=== PATIENT | female | born 1960 | race Caucasian/White ===

== ENCOUNTER 2017-04-10 23:24 | Observation (INO) ==
[2017-04-10] MEDS ORDERED: Aspirin 325 MG TABLET PO ONE (23:46)
--- NOTE | 2017-04-10 23:50 | Emergency Department Note ---
Disposition Clinical Impression: Unstable angina Chest pain Qualifiers: Chest pain type: other chest pain Qualified Code(s): R07.89 - Other chest pain ; R07.8 - Other chest pain N&V (nausea and vomiting) Qualifiers: Vomiting type: unspecified Vomiting Intractability: non-intractable Qualified Code(s): R11.2 - Nausea with vomiting, unspecified Disposition: Admitted As Inpatient Condition: Fair Time of Disposition: 04:57 Chest Pain HPI - General Chief Complaint: ED Chest Pain Stated Complaint: chest pains Time Seen by Provider: 04/10/17 23:47 Source: patient Limitations: no limitations Vital Signs Reviewed: Yes Nursing Notes Reviewed: Yes - History of Present Illness HPI Narrative: 57-year-old female complains of sudden onset of severe chest pain 8/10 intensity sternal with radiation to her back that started 45 minutes ago and states it feels like her ribs being pulled apart. Patient took 4 baby aspirin at the onset of pain. Patient states she has had pain like this before in the past but did not come to the ED. Patient states she has been worked up with a stress test greater than 25 years ago that was negative. Patient states she had radiation pain to her right arm, diaphoresis, and nausea and vomiting times one time. No hematemesis. Patient has history of high blood pressure, diabetes, hypercholesterolemia. Patient states father had heart disease but at age of 51 secondary to cancer. Severity scale (1-10): 5 - Related Data Home Medications Medication Instructions Recorded Confirmed Methimazole [Tapazole] 10 mg PO BID 04/11/17 04/11/17 Propranolol [Inderal] 10 mg PO TID 04/11/17 04/11/17 Allergies Allergy/AdvReac Type Severity Reaction Status Date / Time No Known Allergies Allergy Verified 04/10/17 23:25 All systems ED: reviewed and negative except as stated. Review of Systems: As Per HPI Constitutional: Reports: fever, chills. Denies: weakness Eyes: Denies: vision change ENT ED: Denies: congestion Cardiovascular: Reports: chest pain. Denies: palpitations Gastrointestinal: Reports: nausea, vomiting Chest Pain PMH - Past Medical History Medical history: Reports: other Psychiatric history: Reports: no psych history - Social History Smoking Status: Never smoker Alcohol use: Reports: none Drug use: Reports: none Physical Exam Vital Signs Temperature 98.2 F 04/10/17 23:25 Pulse Rate 86 04/10/17 23:25 Respiratory Rate 20 04/10/17 23:25 Blood Pressure 158/98 04/10/17 23:25 O2 Sat by Pulse Oximetry 100 04/10/17 23:25 Temperature 98.2 F 04/10/17 23:25 Pulse Rate 86 04/10/17 23:25 Respiratory Rate 20 04/10/17 23:25 Blood Pressure 158/98 04/10/17 23:25 O2 Sat by Pulse Oximetry 100 04/10/17 23:25 Oxygen Delivery Oxygen Delivery Room Air CONSTITUTIONAL: Well-appearing; well-nourished; A&O X 3, in no apparent distress HEAD: Normocephalic; atraumatic EYES: PERRL, no scleral icterus NOSE: The nose is normal in appearance without rhinorrhea NECK: No JVD or distended neck veins RESP: Normal chest excursion with respiration; breath sounds clear and equal bilaterally; no wheezes, rhonchi, or rales CARD: Regular rhythm, without murmurs, rub or gallop ABD: Non-distended; non-tender, soft, without rigidity, rebound or guarding,no pulsatile mass CHEST: No pain with palpation SKIN: Normal for age and race; warm and dry without diaphoresis ; no apparent lesions EXTREMITIES: Pulses are 2 plus and equal times 4 extremities, no peripheral edema or calf muscle pain, skin warm and clammy - General Limitations: no limitations General appearance: alert Course - Reevaluation(s) Reevaluation #1: Patient's pain was at 2/10 after 2 nitros. Patient states her pain is now going back up and currently 4/10 Time: 00:37 Reevaluation #2: Order CTA chest, 50 g fentanyl, and 4 mg Zofran. Time: 00:42 Vital Signs Temperature 98.2 F 04/10/17 23:25 Pulse Rate 86 04/10/17 23:25 Respiratory Rate 20 04/10/17 23:25 Blood Pressure 158/98 04/10/17 23:25 O2 Sat by Pulse Oximetry 100 04/10/17 23:25 Temperature 97.9 F 04/11/17 02:38 Pulse Rate 85 04/11/17 02:38 Respiratory Rate 14 04/11/17 02:38 Blood Pressure 118/66 04/11/17 02:38 O2 Sat by Pulse Oximetry 96 04/11/17 02:38 Oxygen Delivery Oxygen Delivery Room Air Chest Pain - MDM Narrative Medical decision making narrative: 57-year-old female who is very concerning for possible ACS/NE with recent history of acute onset of chest pain radiation to her back and to her right arm with associated diaphoresis, and nausea vomiting. Given patient's report I am also concern for aortic dissection. During patient's evaluation and nitroglycerin trial she started to have worsening pain which she states was moving lower. Patient was sent for CTA chest and CTA abdomen and pelvis. Heart score 4 Patient is taking down to CT before she can get the fentanyl. Once patient return her pain was 1/10 that "he went to 0/10 after few minutes. Patient states she was comfortable and did not need to fentanyl. CTA chest and abdomen and pelvis negative for dissection or other abnormalities. Patient's labs were negative with the exception of her LFTs which are elevated. AST 169, ALT 93. Patient will require further investigation for elevated liver enzymes. Patient will be admitted for ACS or concerns to have her troponins trended overnight. The patient understands and agrees to treatment plan. Patient is accepted for admission by Dr. Banda the hospitalist in stable condition. Patient pain currently 0/10 - Lab Data Lab results reviewed: Yes I reviewed the patient's lab results. Lab results narrative: Short CBC 04/10/17 Range/Units 23:45 WBC 9.1 (4.3-11.1) K/mcL Hgb 15.5 H (11.5-15.4) g/dL Hct 47.9 H (35.3-44.9) % Plt Count 353 (140-400) K/mcL Neutrophils # 6.9 (1.6-8.9) K/mcL BMP 04/10/17 Range/Units 23:45 Sodium 135 L (136-145) mEq/L Potassium 3.9 (3.5-5.1) mEq/L Chloride 103 (98-107) mEq/L Carbon Dioxide 24 (23-29) mEq/L BUN 22 H (6-20) mg/dL Creatinine 0.96 (0.60-1.20) mg/dL Glucose 115 H (70-105) mg/dL Calcium 8.9 (8.6-10.3) mg/dL Cardiac Enzymes 04/11/17 04/10/17 Range/Units 03:10 23:45 Troponin I < 0.03 < 0.03 (< 0.04) ng/mL Liver Function 04/10/17 Range/Units 23:45 Total Bilirubin 1.1 H (0.3-1.0) mg/dL Direct Bilirubin 0.3 H (0.0-0.2) mg/dL AST 169 H (13-39) Units/L ALT 93 H (7-52) Units/L Alkaline Phosphatase 103 (34-104) Units/L Albumin 3.7 (3.5-5.7) g/dL Result diagrams: 04/10/17 23:45 04/10/17 23:45 Lab Results 04/10/17 04/10/17 04/10/17 Range/Units 23:45 23:45 23:45 WBC 9.1 (4.3-11.1) K/mcL RBC 5.11 H (3.82-4.97) M/mcL Hgb 15.5 H (11.5-15.4) g/dL Hct 47.9 H (35.3-44.9) % MCV 93.7 (83.0-100.0) fL MCH 30.3 (28.0-33.3) pg MCHC 32.4 (31.6-35.5) g/dL RDW 13.4 (11.5-14.5) % Plt Count 353 (140-400) K/mcL MPV 10.8 (9.4-12.4) fL Immature Gran % 0.4 (0-4) % Seg Neutrophils % 76.1 % Lymphocytes % 14.4 % Monocytes % 8.0 % Eosinophils % 0.9 % Basophils % 0.2 % Neutrophils # 6.9 (1.6-8.9) K/mcL Lymphocytes # 1.3 (0.6-4.6) K/mcL Monocytes # 0.7 (0.0-1.3) K/mcL Eosinophils # 0.1 (0.0-0.6) K/mcL Basophils # 0.0 (0.0-0.2) K/mcL Sodium 135 L (136-145) mEq/L Potassium 3.9 (3.5-5.1) mEq/L Chloride 103 (98-107) mEq/L Carbon Dioxide 24 (23-29) mEq/L BUN 22 H (6-20) mg/dL Creatinine 0.96 (0.60-1.20) mg/dL Est GFR ( Amer) > 60 (> 60) Est GFR (Non-Af Amer) 60 (> 60) BUN/Creatinine Ratio 23 (6-26) Glucose 115 H (70-105) mg/dL POC Glucose (58-89) Calculated Osmolality 284 (280-300) Calcium 8.9 (8.6-10.3) mg/dL Total Bilirubin 1.1 H (0.3-1.0) mg/dL Direct Bilirubin 0.3 H (0.0-0.2) mg/dL Indirect Bilirubin 0.8 (0.0-1.2) mg/dL AST 169 H (13-39) Units/L ALT 93 H (7-52) Units/L Alkaline Phosphatase 103 (34-104) Units/L Troponin I < 0.03 (< 0.04) ng/mL Serum Total Protein 6.5 (6.4-8.9) g/dL Albumin 3.7 (3.5-5.7) g/dL Globulin 2.8 (2.4-3.5) g/dL Albumin/Globulin Ratio 1.3 (1.1-2.2) Lipase 24 (11-82) Units/L TSH 0.949 (0.340-5.600) mcIU/mL 04/10/17 Range/Units 23:56 WBC (4.3-11.1) K/mcL RBC (3.82-4.97) M/mcL Hgb (11.5-15.4) g/dL Hct (35.3-44.9) % MCV (83.0-100.0) fL MCH (28.0-33.3) pg MCHC (31.6-35.5) g/dL RDW (11.5-14.5) % Plt Count (140-400) K/mcL MPV (9.4-12.4) fL Immature Gran % (0-4) % Seg Neutrophils % % Lymphocytes % % Monocytes % % Eosinophils % % Basophils % % Neutrophils # (1.6-8.9) K/mcL Lymphocytes # (0.6-4.6) K/mcL Monocytes # (0.0-1.3) K/mcL Eosinophils # (0.0-0.6) K/mcL Basophils # (0.0-0.2) K/mcL Sodium (136-145) mEq/L Potassium (3.5-5.1) mEq/L Chloride (98-107) mEq/L Carbon Dioxide (23-29) mEq/L BUN (6-20) mg/dL Creatinine (0.60-1.20) mg/dL Est GFR ( Amer) (> 60) Est GFR (Non-Af Amer) (> 60) BUN/Creatinine Ratio (6-26) Glucose (70-105) mg/dL POC Glucose 118 H (58-89) Calculated Osmolality (280-300) Calcium (8.6-10.3) mg/dL Total Bilirubin (0.3-1.0) mg/dL Direct Bilirubin (0.0-0.2) mg/dL Indirect Bilirubin (0.0-1.2) mg/dL AST (13-39) Units/L ALT (7-52) Units/L Alkaline Phosphatase (34-104) Units/L Troponin I (< 0.04) ng/mL Serum Total Protein (6.4-8.9) g/dL Albumin (3.5-5.7) g/dL Globulin (2.4-3.5) g/dL Albumin/Globulin Ratio (1.1-2.2) Lipase (11-82) Units/L TSH (0.340-5.600) mcIU/mL - Radiology Data Radiology results reviewed: Yes I reviewed the patient's radiology results. Chest X-Ray 04/10/17 23:30 IMPRESSION: No acute process. D/ / Bhupendra Ortiz MD / Bhupendra Ortiz MD Interpreting Provider: Bhupendra Ortiz MD Chest CTA 04/11/17 00:40 IMPRESSION: 1. No acute abnormality of the chest, abdomen pelvis. 2. No acute abnormality of the thoracic or abdominal aorta. No evidence of aneurysm or dissection. 3. Status post cholecystectomy. 4. Normal appendix. 5. Colonic diverticulosis, most in the sigmoid colon, without evidence of diverticulitis. D/ / Bhupendra Ortiz MD / Bhupendra Ortiz MD Interpreting Provider: Bhupendra Ortiz MD Abdomen/Pelvis CTA 04/11/17 00:43 IMPRESSION: 1. No acute abnormality of the chest, abdomen pelvis. 2. No acute abnormality of the thoracic or abdominal aorta. No evidence of aneurysm or dissection. 3. Status post cholecystectomy. 4. Normal appendix. 5. Colonic diverticulosis, most in the sigmoid colon, without evidence of diverticulitis. D/ / Bhupendra Ortiz MD / Bhupendra Ortiz MD Interpreting Provider: Bhupendra Ortiz MD - EKG Data EKG attestation: Yes I reviewed and interpreted this EKG. EKG results narrative: EKG taken 04/10/2017 at 2332 hrs. shows sinus rhythm at a rate of [address] elevations or depressions any leads, no QRS widening or QT prolongation. Previous Ekin T for comparison also shows sinus rhythm at a rate of 88 bpm no signs of ischemia. Repeat EKG taken at 00 42 hours shows sinus rhythm but has some slight depression in lateral leads of V4 5 and 6 less than 1 box, and some flattening of the isoelectric line in aVL. Heart Score - Score History: Highly Suspicious EKG: Non Specific repolarisation Disturbance Age: 45-65 Risk Factors: No risk factors known Troponin: Less than normal limit HEART Score Total: 4
[2017-04-10 23:53] LABS: Basophils % 0.2 %; Eosinophils # 0.1 K/mcL (0.0-0.6); Eosinophils % 0.9 %; Hematocrit 47.9 % (35.3-44.9); Hemoglobin 15.5 g/dL (11.5-15.4); Immature Granulocytes % 0.4 % (0-4); Lymphocytes # 1.3 K/mcL (0.6-4.6); Lymphocytes % 14.4 %; Mean Corpuscular HGB Conc 32.4 g/dL (31.6-35.5); Mean Corpuscular Hemoglobin 30.3 pg (28.0-33.3); Mean Corpuscular Volume 93.7 fL (83.0-100.0); Mean Platelet Volume 10.8 fL (9.4-12.4); Monocytes # 0.7 K/mcL (0.0-1.3); Neutrophils # 6.9 K/mcL (1.6-8.9); Platelet Count 353 K/mcL (140-400); Red Blood Count 5.11 M/mcL (3.82-4.97); Red Cell Distribution Width 13.4 % (11.5-14.5); Segmented Neutrophils % 76.1 %
[2017-04-11 00:09] LABS: BUN/Creatinine Ratio 23 (6-26); Blood Urea Nitrogen 22 mg/dL (6-20); Calcium 8.9 mg/dL (8.6-10.3); Carbon Dioxide 24 mEq/L (23-29); Chloride 103 mEq/L (98-107); Glucose 115 mg/dL (70-105); Osmolality,Calculated 284 (280-300); Potassium 3.9 mEq/L (3.5-5.1); Sodium 135 mEq/L (136-145); eGFR For African Americans > 60 (> 60); eGFR For Non-African Americans 60 (> 60)
[2017-04-11] MEDS: Nitroglycerin 0.4 MG TAB.SUBL SL PRN ×3 (00:14→00:36)
[2017-04-11] MEDS ORDERED: 0.9 % Sodium Chloride 1,000 ML IVC ONE ×2 (00:32)
[2017-04-11] MEDS ORDERED: Ondansetron 4 MG/2 ML VIAL IVP PRN ×2 (00:40→02:09)
[2017-04-11] MEDS ORDERED: *HR* FentaNYL (PF) 100 MCG/2 ML VIAL IVP ONE (00:40)
--- NOTE | 2017-04-11 00:48 | Emergency Department Note ---
Disposition Clinical Impression: Unstable angina Chest pain Qualifiers: Chest pain type: other chest pain Qualified Code(s): R07.89 - Other chest pain N&V (nausea and vomiting) Qualifiers: Vomiting type: unspecified Vomiting Intractability: non-intractable Qualified Code(s): R11.2 - Nausea with vomiting, unspecified Disposition: Admitted As Inpatient Condition: Fair General Adult HPI - General Chief complaint: ED Chest Pain Stated complaint: chest pains Time Seen by Provider: 04/10/17 23:47 Source: patient Limitations: no limitations - History of Present Illness Pain Scale: 5 - Related Data Home Medications Medication Instructions Recorded Confirmed Methimazole [Tapazole] 10 mg PO BID 04/11/17 04/11/17 Propranolol [Inderal] 10 mg PO TID 04/11/17 04/11/17 Allergies Allergy/AdvReac Type Severity Reaction Status Date / Time No Known Allergies Allergy Verified 04/10/17 23:25 Constitutional: Reports: fever, chills. Denies: weakness Eyes: Denies: vision change ENT ED: Denies: congestion Cardiovascular: Reports: chest pain. Denies: palpitations Gastrointestinal: Reports: nausea, vomiting Past Medical History - Past Medical History Medical history: Reports: other Psychiatric history: Reports: no psych history - Social History Smoking Status: Never smoker Smokeless Tobacco Status: No Alcohol use: Reports: none Drug use: Reports: none Physical Exam - General Limitations: no limitations General appearance: alert Course - Reevaluation(s) Time: 00:45 Vital Signs Temperature 98.2 F 04/10/17 23:25 Pulse Rate 86 04/10/17 23:25 Respiratory Rate 20 04/10/17 23:25 Blood Pressure 158/98 04/10/17 23:25 O2 Sat by Pulse Oximetry 100 04/10/17 23:25 Temperature 97.9 F 04/11/17 02:38 Pulse Rate 85 04/11/17 02:38 Respiratory Rate 14 04/11/17 02:38 Blood Pressure 118/66 04/11/17 02:38 O2 Sat by Pulse Oximetry 96 04/11/17 02:38 Oxygen Delivery Oxygen Delivery Room Air Medical Decision Making - Lab Data Result diagrams: 04/10/17 23:45 04/10/17 23:45 Lab Results 02/10/18 02/10/18 02/10/18 Range/Units 23:45 23:45 23:45 WBC 9.1 (4.3-11.1) K/mcL RBC 5.11 H (3.82-4.97) M/mcL Hgb 15.5 H (11.5-15.4) g/dL Hct 47.9 H (35.3-44.9) % MCV 93.7 (83.0-100.0) fL MCH 30.3 (28.0-33.3) pg MCHC 32.4 (31.6-35.5) g/dL RDW 13.4 (11.5-14.5) % Plt Count 353 (140-400) K/mcL MPV 10.8 (9.4-12.4) fL Immature Gran % 0.4 (0-4) % Seg Neutrophils % 76.1 % Lymphocytes % 14.4 % Monocytes % 8.0 % Eosinophils % 0.9 % Basophils % 0.2 % Neutrophils # 6.9 (1.6-8.9) K/mcL Lymphocytes # 1.3 (0.6-4.6) K/mcL Monocytes # 0.7 (0.0-1.3) K/mcL Eosinophils # 0.1 (0.0-0.6) K/mcL Basophils # 0.0 (0.0-0.2) K/mcL Sodium 135 L (136-145) mEq/L Potassium 3.9 (3.5-5.1) mEq/L Chloride 103 (98-107) mEq/L Carbon Dioxide 24 (23-29) mEq/L BUN 22 H (6-20) mg/dL Creatinine 0.96 (0.60-1.20) mg/dL Est GFR ( Amer) > 60 (> 60) Est GFR (Non-Af Amer) 60 (> 60) BUN/Creatinine Ratio 23 (6-26) Glucose 115 H (70-105) mg/dL POC Glucose (58-89) Calculated Osmolality 284 (280-300) Calcium 8.9 (8.6-10.3) mg/dL Total Bilirubin 1.1 H (0.3-1.0) mg/dL Direct Bilirubin 0.3 H (0.0-0.2) mg/dL Indirect Bilirubin 0.8 (0.0-1.2) mg/dL AST 169 H (13-39) Units/L ALT 93 H (7-52) Units/L Alkaline Phosphatase 103 (34-104) Units/L Troponin I < 0.03 (< 0.04) ng/mL Serum Total Protein 6.5 (6.4-8.9) g/dL Albumin 3.7 (3.5-5.7) g/dL Globulin 2.8 (2.4-3.5) g/dL Albumin/Globulin Ratio 1.3 (1.1-2.2) Lipase 24 (11-82) Units/L TSH 0.949 (0.340-5.600) mcIU/mL 04/10/17 Range/Units 23:56 WBC (4.3-11.1) K/mcL RBC (3.82-4.97) M/mcL Hgb (11.5-15.4) g/dL Hct (35.3-44.9) % MCV (83.0-100.0) fL MCH (28.0-33.3) pg MCHC (31.6-35.5) g/dL RDW (11.5-14.5) % Plt Count (140-400) K/mcL MPV (9.4-12.4) fL Immature Gran % (0-4) % Seg Neutrophils % % Lymphocytes % % Monocytes % % Eosinophils % % Basophils % % Neutrophils # (1.6-8.9) K/mcL Lymphocytes # (0.6-4.6) K/mcL Monocytes # (0.0-1.3) K/mcL Eosinophils # (0.0-0.6) K/mcL Basophils # (0.0-0.2) K/mcL Sodium (136-145) mEq/L Potassium (3.5-5.1) mEq/L Chloride (98-107) mEq/L Carbon Dioxide (23-29) mEq/L BUN (6-20) mg/dL Creatinine (0.60-1.20) mg/dL Est GFR ( Amer) (> 60) Est GFR (Non-Af Amer) (> 60) BUN/Creatinine Ratio (6-26) Glucose (70-105) mg/dL POC Glucose 118 H (58-89) Calculated Osmolality (280-300) Calcium (8.6-10.3) mg/dL Total Bilirubin (0.3-1.0) mg/dL Direct Bilirubin (0.0-0.2) mg/dL Indirect Bilirubin (0.0-1.2) mg/dL AST (13-39) Units/L ALT (7-52) Units/L Alkaline Phosphatase (34-104) Units/L Troponin I (< 0.04) ng/mL Serum Total Protein (6.4-8.9) g/dL Albumin (3.5-5.7) g/dL Globulin (2.4-3.5) g/dL Albumin/Globulin Ratio (1.1-2.2) Lipase (11-82) Units/L TSH (0.340-5.600) mcIU/mL Attestation Statement - Attestation Attestation: I examined this patient and my medical decision-making was reviewed with the Resident Physician. I agree with the documented findings, disposition and treatment plan as described except to the extent set forth below. Patient in the ED with chest pain. Patient describes chest pain rates the right shoulder. She got nauseated and had several ounces of vomiting following it. It has improved but is still present. No cardiac history. She does have a family history and her father. On examination she is in no distress. Heart regular lungs clear. Plan. EKG has an anteroseptal depressions. Cardiac workup. Will admit.
[2017-04-11 01:07] LABS: Thyroid Stimulating Hormone 0.949 mcIU/mL (0.340-5.600)
[2017-04-11] MEDS ORDERED: Naloxone 0.4 MG/ML INJ IVP PRN (02:06)
[2017-04-11] MEDS ORDERED: Prochlorperazine 10 MG/2 ML VIAL IVP PRN (02:09)
--- NOTE | 2017-04-11 02:13 | Internal Med History&Physical ---
Date of Encounter: 04/11/17 Time of Encounter: 02:19 Assessment and Plan (1) Chest pain Current visit: Yes Status: Acute ED requested for CP admit, CTPE completed in the ED with read pending Per hx, this is likely related to GI illness trend trop repeat EKG in the a.m tele further management pending inpatient course Qualifiers: Chest pain type: other chest pain Qualified Code(s): R07.89 - Other chest pain; R07.8 - Other chest pain (2) Viral illness Current visit: Yes Status: Acute trial IV pepcid, tums stool studies if able to produce IVF full liquid and progress as tolerated IV anti-emetic d/w ED to send lipase which is pending (remote hx of unexplained pancreatitis in the past) (3) Graves disease Current visit: Yes Status: Acute continue med and prn inderal Internal Medicine - H&P: HPI Chief complaint: GI viral illness and Chest pain History of present illness: Ms. Sanchez is a 57 year old female with hx of graves, remote hx of unexplained pancreatitis who presents with GI viral illness and Chest pain. She reports that a viral GI bug has been in affecting his son and . This morning, she developed nausea, vomiting consisting of clear emesis, nonbloody diarrhea with episode of 4-5 times today. This was associated with epigastric, sternal pain. At 11 PM she developed epigastric, sternal pain, rate 8 out of 10 , pressure sensation, radiating to the right arm with little improving factors leading to presentation to the ER. EKG personally reviewed with rate 99, NSR XR/XR chest 1V IMPRESSION: No acute process. Past Med Surg Social Fam HX - Past Medical History Medical history: other Psychiatric history: no psych history - Social History Smoking Status: Never smoker Smokeless Tobacco Status: No Alcohol use: none Drug use: none Internal Medicine - H&P: Meds Methimazole [Tapazole] 10 mg PO BID 04/11/17 [History] Propranolol [Inderal] 10 mg PO TID 04/11/17 [History] 3 Allergy/AdvReac Type Severity Reaction Status Date / Time No Known Allergies Allergy Verified 04/10/17 23:25 All Systems PM: A 10-system review of systems was performed and is negative for pertinent findings except as documented above in the HPI. Review of systems: ROS 14 point review of systems reviewed as best as possible given presentation. Pertinent positive or negative as per HPI or otherwise reviewed as negative - Constitutional Vitals: Temp Pulse Resp BP Pulse Ox 98.2 F 84 18 125/67 98 04/10/17 23:25 04/11/17 01:14 04/11/17 01:14 04/11/17 01:14 04/11/17 01:14 Exam: General - AAO x 3 Psych - Appropriate affect/speech. No agitation Eyes - FAINA. Eye lids intact. No scleral icterus Heart - Sinus. RRR. S1 and S2 present. No added HS/murmurs appreciated. No elevated JVD appreciated. Lung - Adequate air entry b/l, No crackles/wheezes appreciated GI - Mild epigastric discomfort. Soft, non-tender. No hepatosplenomegaly/ ascites. BS+ - No CVA/suprapubic tenderness or palpable bladder distension Skin - Intact. No rash/petechiae/ecchymosis. Warm extremities Internal Med - H&P Results - Labs CBC & Chem 7: 04/10/17 23:45 04/10/17 23:45
[2017-04-11] MEDS ORDERED: Ringers Solution, Lactated 1,000 ML IVC SCH (02:15)
[2017-04-11] MEDS ORDERED: Famotidine 20 MG/2 ML VIAL IVP SCH (02:15)
[2017-04-11 03:23] LABS: Alanine Aminotransferase 93 Units/L (7-52); Albumin 3.7 g/dL (3.5-5.7); Albumin/Globulin Ratio 1.3 (1.1-2.2); Alkaline Phosphatase 103 Units/L (34-104); Aspartate Amino Transferase 169 Units/L (13-39); Bilirubin,Direct 0.3 mg/dL (0.0-0.2); Bilirubin,Indirect 0.8 mg/dL (0.0-1.2); Bilirubin,Total 1.1 mg/dL (0.3-1.0); Globulin 2.8 g/dL (2.4-3.5); Lipase 24 Units/L (11-82); Total Protein 6.5 g/dL (6.4-8.9)
[2017-04-11 04:57] LABS: C.difficile Toxin A/B by PCR Not detected (Not detect); Campylobacter by PCR Not detected (Not detect); Enteroaggregative E.coli(EAEC) Not detected (Not detect); Enteropathogenic E.coli(EPEC) Not detected (Not detect); Enterotoxigenic E.coli (ETEC) Not detected (Not detect); Plesiomonas shigelloides PCR Not detected (Not detect); Salmonella PCR Not detected (Not detect); Shigalike tox-prod E coli STEC Not detected (Not detect); Vibrio PCR Not detected (Not detect); Vibrio cholerae PCR Not detected (Not detect); Yersinia enterocolitica PCR Not detected (Not detect)
[2017-04-11 04:58] LABS: Adenovirus F 40/41 PCR Not detected (Not detect); Astrovirus PCR Not detected (Not detect); Cryptosporidium by PCR Not detected (Not detect); Cyclospora cayetanensis PCR Not detected (Not detect); E. coli O157 by PCR Not detected (Not detect); Entamoeba histolytica PCR Not detected (Not detect); Giardia lamblia PCR Not detected (Not detect); Norovirus GI/GII PCR ***DETECTED*** (Not detect); Rotavirus A PCR Not detected (Not detect); Sapovirus PCR Not detected (Not detect); Shig/EnteroinvasiveE coli EIEC Not detected (Not detect)
[2017-04-11] MEDS ORDERED: methIMAzole 5 MG TABLET PO SCH (09:00)
[2017-04-11 11:25] VITALS: BP 130/81
--- NOTE | 2017-04-11 13:16 | Discharge Summary ---
Date of Encounter: 04/11/17 Time of Encounter: 13:12 - Discharge Diagnosis (1) Chest pain Priority: Primary Status: Acute Comments: ED requested for chest pain admission CTA last was completed with no pe Patient has had no further chest pain EKG reviewed Troponin negative Patient tells me that she has had on and off chest pain for some time and is in the process of having it worked up at the office. Her primary care physician has ordered some multiple testings included an echocardiogram. 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 I offered her the option to stay overnight but she prefers to go home today Qualifiers: Chest pain type: other chest pain Qualified Code(s): R07.89 - Other chest pain; R07.8 - Other chest pain (2) Graves disease Priority: Secondary Status: Chronic Comments: Continue home medications TSH 0.949 (3) N&V (nausea and vomiting) Priority: Primary Status: Acute Comments: Patient reports her family has had a GI bug including her and son. She developed nausea vomiting with clear emesis and some diarrhea of 4-5 episodes. She has some epigastric sternal pain with pressure sensation radiating to the arm so she came Nausea and vomiting has resolved. Tolerating a diet Provided Zofran prescription for discharge Lipase 24 CTA of the abdomen and pelvis with nothing acute No stool so studies were not sent Qualifiers: Vomiting type: unspecified Vomiting Intractability: unspecified Qualified Code(s): R11.2 - Nausea with vomiting, unspecified (4) Viral illness Priority: Primary Status: Acute Comments: Patient states her son and were sick with the viral gastrointestinal bug and she probably caught that. She is currently resting quietly in bed denies any pain or discomfort. Tolerating a diet Very anxious for discharge States she will follow-up with her primary care physician this week - Discharge Medications Prescriptions: Ondansetron ODT [Zofran ODT] 4 mg SL Q8HR #8 tab.rapdis Home Medications: Methimazole [Tapazole] 10 mg PO BID 04/11/17 [History] Ondansetron ODT [Zofran ODT] 4 mg SL Q8HR #8 tab.rapdis 04/11/17 [Rx] Propranolol [Inderal] 10 mg PO TID 02/11/18 [History] Allergies/Adverse Reactions: 3 Allergy/AdvReac Type Severity Reaction Status Date / Time No Known Allergies Allergy Verified 04/10/17 23:25 Procedures/tests Complete & Pending: Procedures Performed prior 72 hours Category Date Time Status EKG [ECG 12 lead ECG] [ECG] AM 0600 Y 04/11/17 06:00 Ordered Date of admission: 04/11/17 01:06 Primary care physician: Mandeep Martin Discharging clinician: Katarina Romeo Anticipated date of discharge: 04/11/17 - Patient Status Disposition: Home, Self-Care Condition: Fair Functional capacity at discharge: independent ambulation Overall status at discharge: patient is back to baseline - Discharge Instructions Instructions: Chest Pain (DC) Follow Up With: Antonio Rey DO [Primary Care Provider] - (An appointment has been web requested. The office will contact patient at home to schedule appointment. ) Additional Instructions: Follow-up with year primary care physician within the next week. If chest pain returns return to the ED. - Diet and Activity Activity: resume usual activities as tolerated Diet: advance to your usual diet Interval History: She denies any further nausea, vomiting, diarrhea, fevers, chills, chest pain or shortness of breath. She feels she is back to her baseline is very anxious for discharge home. She states she is currently working with her PCP regarding recurrent chest pain. She says she has some outpatient testing scheduled and would like to return to him and not remain here for any testing. Hospital course: Ms. Sanchez is a 57 year old female history of Graves' disease and a remote unexplained pancreatitis who presented with GI viral illness and chest pain. She reported that she had a viral GI bug going to her how that affected both her son and her . Morning of admission she developed nausea vomiting with clear emesis and nonbloody I it diarrhea for 4-5 episodes. This was associated with a severe epigastric sternal pain. 11 PM it rotated and do her right arm. She was afraid it could be cardiac and presented to the emergency room. She states she has felt better since being treated with Zofran and Pepcid. She is anxious to go home and will follow up with her primary care physician regarding further testing as he already has some cardiac workup scheduled. Provided a prescription for Zofran. She will return to her own PPI at home. She has no questions and will follow-up with her primary care physician. She will return to the ED if she develops any return of the chest pain. - Time Spent with Patient Total time spent providing and/or coordinating discharge services: Less than 30 minutes - Constitutional Vitals: Temp Pulse Resp BP Pulse Ox 97.4 F L 78 16 130/81 94 04/11/17 11:24 04/11/17 11:24 04/11/17 11:24 04/11/17 11:24 04/11/17 11:24 General appearance: Present: cooperative, A&O X 3, pleasant, no acute distress, answers questions appropriately - Head Head exam: Present: atraumatic, normocephalic - Eye Eye exam: Present: PERRL, conjuntiva pink, sclera anicteric Pupils: Present: PERRL - Neck Neck exam general surgery: Present: supple, trachea midline. Absent: lymphadenopathy - Respiratory Respiratory exam: Present: CTAB. Absent: accessory muscle use, rales, rhonchi, wheezes - Cardiovascular Cardiovascular exam: Present: RRR, +S1, +S2. Absent: diastolic murmur, gallop, rubs, systolic murmur - GI/Abdominal GI/Abdominal exam: Present: normal bowel sounds, soft, no peritoneal signs. Absent: distended, guarding, tenderness - Extremities Exam Extremities exam: Present: warm, radial pulses palpable and symmetrical. Absent : calf tenderness, cyanotic, pedal edema - Neurological Exam Neurological exam: Present: CN II-XII intact, oriented X3, no focal deficits. Absent: pronater drift, facial droop, speech deficit - Skin Skin exam: Present: dry, intact, warm
--- NOTE | 2017-04-12 17:08 | Electrocardiograph Report ---
[place] [id number] Test Date: 2017-04-11 Pat Name: Tati Sanchez Department: 102 Room: 3B Gender: F Metal Sorter: Ekp : 1960 Requested By: Gomez Augustin Order Number: [id number] Reading MD: Tyler Alberto DO Measurements Intervals [place] Rate: 99 P: 45 RI: 123 QRS: -3 QRSD: 85 T: 60 QT: 327 QTc: 383 Interpretive Statements SINUS RHYTHM Electronically Signed On 04-12-2017 17:07:24 EST by Tyler Alberto DO
== END 2017-04-11 14:00 | disposition home or self-care (01) ==
LOC: 3BNU 23:24 → EMEROO 23:24 → 3BNU 04-11 01:43
PROVIDERS: ADMIT Internal Medicine Hematology & Oncology; ATTEND Registered Nurse